=== PATIENT | female | born 1995 | race Caucasian/White ===

== ENCOUNTER 2016-10-11 13:35 | Emergency (ER) | payer OTHER ==
--- NOTE | 2016-10-11 15:58 | UC ---
Hand/Wrist HPI - HPI Summary HPI Summary: piece of wound fell on left middle finger 2 days ago- - History Of Current Complaint Chief Complaint: UCTrauma Stated Complaint: FINGER INJURY Time Seen by Provider: 10/11/16 15:53 Hx Obtained From: Patient ?: No Onset/Duration: Sudden Onset, Lasting Days - 2 days ago, Still Present Severity Initially: Moderate Severity Currently: Moderate Pain Intensity: 4 Pain Scale Used: 0-10 Numeric Character Of Pain: Throbbing Aggravating Factor(s): Movement Alleviating: Rest, Elevation, OTC Meds Associated Signs And Symptoms: Positive: Swelling, Bruising Related History: Dominant Hand Left - Allergies/Home Medications Allergies/Adverse Reactions: Allergies Allergy/AdvReac Type Severity Reaction Status Date / Time Choline Allergy Intermediate GI Upset Verified 10/11/16 16:01 [From Vitamin Mineral Supplement] Ethanol Allergy Intermediate GI Upset Verified 10/11/16 16:01 [From Vitamin Mineral Supplement] Inositol Allergy Intermediate GI Upset Verified 10/11/16 16:01 [From Vitamin Mineral Supplement] Iodine Allergy Intermediate GI Upset Verified 10/11/16 16:01 [From Vitamin Mineral Supplement] Iron Allergy Intermediate GI Upset Verified 10/11/16 16:01 [From Vitamin Mineral Supplement] Magnesium Allergy Intermediate GI Upset Verified 10/11/16 16:01 [From Vitamin Mineral Supplement] Manganese Allergy Intermediate GI Upset Verified 10/11/16 16:01 [From Vitamin Mineral Supplement] Niacinamide Allergy Intermediate GI Upset Verified 10/11/16 16:01 [From Vitamin Mineral Supplement] Pantothenic Acid Allergy Intermediate GI Upset Verified 10/11/16 16:01 [From Vitamin Mineral Supplement] Pyridoxine Allergy Intermediate GI Upset Verified 10/11/16 16:01 [From Vitamin Mineral Supplement] Riboflavin Allergy Intermediate GI Upset Verified 10/11/16 16:01 [From Vitamin Mineral Supplement] Thiamine Allergy Intermediate GI Upset Verified 10/11/16 16:01 [From Vitamin Mineral Supplement] Vitamin B12 Allergy Intermediate GI Upset Verified 10/11/16 16:01 [From Vitamin Mineral Supplement] Zinc Allergy Intermediate GI Upset Verified 10/11/16 16:01 [From Vitamin Mineral Supplement] Home Medications: Home Medications Ibuprofen [Ibuprofen 200 MG] 400 mg PO Q6H PRN 10/11/16 [History Confirmed 10/11] Methylphenidate HCl [Concerta] 36 mg PO DAILY 10/11/16 [History Confirmed ] PMH/Surg Hx/FS Hx/Imm Hx Previously Healthy: Yes Other History Of: Negative For: Anticoagulant Therapy - Surgical History Surgical History: None - Family History Known Family History: Positive: None - Social History Occupation: Employed Full-time Lives: With Family Alcohol Use: Occasionally Substance Use Type: None Smoking Status (MU): Never Smoked Tobacco Review of Systems Constitutional: Negative Skin: Negative Eyes: Negative ENT: Negative Respiratory: Negative Cardiovascular: Negative Gastrointestinal: Negative Genitourinary: Negative Motor: Negative Neurovascular: Negative Musculoskeletal: Negative - right middle finger, Arthralgia Neurological: Negative Psychological: Negative All Other Systems Reviewed And Are Negative: Yes Physical Exam Triage Information Reviewed: Yes Appearance: Well-Appearing, No Pain Distress, Well-Nourished Vital Signs Reviewed: Yes Eye Exam: Normal Eyes: Positive: Conjunctiva Clear ENT Exam: Normal ENT: Positive: Normal ENT inspection, Hearing grossly normal, TMs normal. Negative: Nasal congestion, Nasal drainage, Trismus, Muffled/hoarse voice Dental Exam: Normal Neck exam: Normal Neck: Positive: Supple, Nontender Respiratory Exam: Normal Respiratory: Positive: Chest non-tender, No respiratory distress, No accessory muscle use Cardiovascular Exam: Normal Cardiovascular: Positive: RRR, Pulses Normal, Brisk Capillary Refill Musculoskeletal Exam: Normal Musculoskeletal: Positive: Strength Intact, ROM Intact, Edema @ - right middle finger distal pain and swelling Neurological Exam: Normal Neurological: Positive: Alert, Muscle Tone Normal Psychological Exam: Normal Psychological: Positive: Normal Response To Family, Age Appropriate Behavior Skin Exam: Normal Diagnostics - Radiology No standard instances Xray Interpretation: Positive (See Comments) Radiology Interpretation Completed By: ED Physician - non -articular non displaced fracture 3rd distal phalange Hand/Wrist Course/Dx - Course Course Of Treatment: splint, rice, ibuprofen, off work untill rechecked by ortho - Differential Dx/Diagnosis Differential Diagnosis/HQI/PQRI: Contusion, Fracture, Sprain, Strain Provider Diagnoses: nondisplaced, nonintraarticular fracture of distal third right phalange Discharge - Discharge Plan Condition: Stable Disposition: HOME Patient Education Materials: Ibuprofen (By mouth), RICE Therapy (ED), Finger Fracture (ED) Forms: *Work Release Referrals: Al Beverly MD [Medical Doctor] - 3 Days
--- NOTE | 2016-10-11 16:18 | RAD ---
INDICATION: Crush injury RIGHT third finger. Question fracture and dislocation. COMPARISON: No relevant prior exams available on the [facility] PACS for comparison. TECHNIQUE: AP, lateral, and oblique views RIGHT hand. REPORT: Nondisplaced fracture at the junction of the proximal metaphysis and diaphysis of the third distal phalanx. Negative for additional fracture. Normal articular alignment. Soft tissue swelling greatest distally. No conspicuous foreign body or subcutaneous emphysema. IMPRESSION: Nonarticular nondisplaced fracture third distal phalanx.
[2016-10-11 16:21] VITALS: BP 116/62
== END 2016-10-11 16:34 | disposition home or self-care (01) ==
LOC: UCEAST 13:35
DX: S62.662A Nondisplaced fracture of distal phalanx of right middle finger, initial encounter for closed fracture (principal); W20.8XXA Other cause of strike by thrown, projected or falling object, initial encounter; Y93.9 Activity, unspecified; Y92.9 Unspecified place or not applicable
CPT/HCPCS: 99211; G0463

== ENCOUNTER 2017-03-27 14:27 | Emergency (ER) | payer OTHER | END 2017-03-27 14:55 | disposition left against medical advice (07) | LOC: UCEAST 14:27 | DX: S09.90XA Unspecified injury of head, initial encounter (principal); Z53.21 Procedure and treatment not carried out due to patient leaving prior to being seen by health care provider ==

== ENCOUNTER 2017-03-27 14:49 | Emergency (ER) | payer OTHER ==
[2017-03-27 15:17] VITALS: BP 116/65
--- NOTE | 2017-03-27 16:09 | ED ---
Head Injury - History Of Current Complaint Chief Complaint: EDHeadInjury Stated Complaint: HEAD INJURY Time Seen by Provider: 03/27/17 15:30 Hx Last Menstrual Period: 10/03/16 Pain Intensity: 0 - Allergies/Home Medications Allergies/Adverse Reactions: Allergies Allergy/AdvReac Type Severity Reaction Status Date / Time Multivitamins AdvReac GI Upset Uncoded 03/27/17 15:26 PMH/Surg Hx/FS Hx/Imm Hx Endocrine/Hematology History: Denies: Hx Anticoagulant Therapy Infectious Disease History: No Infectious Disease History: Denies: Traveled Outside the [place] in Last 30 Days - Family History Known Family History: Positive: None - Social History Alcohol Use: Occasionally Substance Use Type: Reports: None Smoking Status (MU): Never Smoked Tobacco Physical Exam Vital Signs On Initial Exam: Initial Vitals Temp Pulse Resp BP Pulse Ox 98.1 F 67 18 116/65 100 03/27/17 15:13 03/27/17 15:13 03/27/17 15:13 03/27/17 15:13 03/27/17 15:13 Diagnostics - Vital Signs Vital Signs Temp Pulse Resp BP Pulse Ox 03/27/17 15:13 98.1 F 67 18 116/65 100 - Laboratory Lab Statement: Any lab studies that have been ordered have been reviewed, and results considered in the medical decision making process. Discharge - Discharge Plan Referrals: Cortney Figueroa NP [Primary Care Provider] -
[2017-03-27] MEDS ORDERED: Acetaminophen TAB* 325 MG PO ONE (17:58)
[2017-03-27] MEDS ORDERED: Ondansetron ODT TAB* 4 MG PO ONE (17:58)
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
--- NOTE | 2017-03-27 18:03 | RAD ---
INDICATION: Head injury with memory loss. COMPARISON: Comparison is made with a prior CT of the brain from October 02, 2015. TECHNIQUE: Contiguous axial sections of the brain were obtained from the skull base to the vertex without contrast. FINDINGS: The ventricles, cisterns and sulci are within normal limits. No significant focal abnormality or mass effect is seen. There is no evidence for hemorrhage. No significant focal osseous abnormality is seen. The visualized portion of the paranasal sinuses and mastoid air cells appear clear. IMPRESSION: NO EVIDENCE FOR ACUTE INTRACRANIAL ABNORMALITY.
--- NOTE | 2017-03-27 18:16 | RAD ---
INDICATION: Facial trauma. COMPARISON: There are no prior studies available for comparison. TECHNIQUE: Contiguous axial sections of the axial images of the facial bones were obtained and reconstructed in the coronal and sagittal planes. FINDINGS: Soft tissue swelling is noted over the right maxilla and orbit. The trejo of the orbits and maxillary sinuses appear intact. The zygomatic arches appear intact. There is no evidence for a fracture of the mandible. The nasal bones appear intact. There is moderate deviation of the nasal septum toward the right side. The pterygoid plates appear intact. The paranasal sinuses appear clear. IMPRESSION: NO EVIDENCE OF FRACTURE.
== END 2017-03-27 19:21 | disposition home or self-care (01) ==
LOC: ED 14:49
DX: S06.0X0A Concussion without loss of consciousness, initial encounter (principal); S05.11XA Contusion of eyeball and orbital tissues, right eye, initial encounter; W50.1XXA Accidental kick by another person, initial encounter; Y93.41 Activity, dancing; Y92.9 Unspecified place or not applicable; R11.0 Nausea; I47.1 Supraventricular tachycardia; Z87.820 Personal history of traumatic brain injury
CPT/HCPCS: 70450; 70486; 99282; A9270-GY